=== PATIENT | male | born 1965 | race Caucasian/White ===

== ENCOUNTER → 2017-05-08 12:04 | Outpatient (POV) | payer MEDICARE, SELFPAY | PROVIDERS: PCP Family Medicine; Visit Provider Internal Medicine | DX: Z00.00 Encounter for general adult medical examination without abnormal findings (principal) ==

== ENCOUNTER → 2018-04-16 09:46 | Outpatient (POV) | payer BC, SELFPAY ==
--- NOTE | 2018-04-16 11:34 | XR_ITS ---
XR chest 2V HISTORY: ITS.REASON: SHORTNESS OF BREATH ORDERING PHYSICIAN: Seymour Castillo MD PATIENT AGE: 53 years FINDINGS: The cardiomediastinal silhouette and pulmonary are within normal limits. There are mild atelectatic changes in the left lung base. The remaining lungs are clear.. No acute bony abnormalities. IMPRESSION: Left basilar atelectatic change
== END ==
PROVIDERS: PCP Family Medicine; Referring Provider Nurse Practitioner Family; Visit Provider Internal Medicine
DX: R06.02 Shortness of breath (principal)
CPT/HCPCS: 71046

== ENCOUNTER → 2018-05-14 11:39 | Outpatient (POV) | payer BC, SELFPAY | PROVIDERS: Visit Provider Internal Medicine | DX: Z00.00 Encounter for general adult medical examination without abnormal findings (principal) ==

== ENCOUNTER → 2018-07-23 10:07 | Outpatient (POV) | payer BC, SELFPAY | PROVIDERS: Visit Provider Internal Medicine | DX: Z00.00 Encounter for general adult medical examination without abnormal findings (principal) ==

== ENCOUNTER → 2018-10-18 10:55 | Outpatient (CLI) | payer BC, SELFPAY ==
--- NOTE | 2018-10-18 10:59 | CA_ITS ---
PROCEDURE: 2-D M-mode and color Doppler study INDICATIONS FOR THE TEST: Chest pain + COPD Heart Murmur Tobacco Smokingex Palpitations Fatigue Syncope Edema Hypertension+Diabetes Mellitus Rheumatic Fever SOB+NORWOOD+Obesity Hyperlipidemia Family History HD Additional History CAD,GEWRD, ASTHMA,ARRHYTHMIA PATIENT INFORMATION HEIGHT:72 WEIGHT:231 GENDER: Male B/P:128/84 2-D/M-MODE INTERPRETATION: 2-D MEASUREMENTS OBSERVED VALUES IN CMS Right Ventricular Dimension (RVDd) 4.2 Interventricular Septum (Thickness)(IVsd) 0.9 Left Ventricular Internal Dimensions(LVIDd) 5.2 Left Ventricular Posterior Wall (Thickness)(LVPWd) 1.0 Aortic Root 3.0 Aortic Cusp Separation 2.0 Left Atrial Dimensions (LAD) 3.4 2D 1. Left atrium is normal size, left ventricle is normal size, there is no concentric left ventricular hypertrophy, visually estimated ejection fraction 55% with no regional wall motion abnormality. 2. The right atrium and right ventricle are moderately enlarged with normal contractility. 3. The aortic valve is minimally thickened and fibrosed. 4. The mitral and tricuspid valve leaflets are minimally thickened 5. The pulmonic valve is poorly visualized. 6. No significant pericardial effusion noted. DOPPLER INTERROGATION: Doppler interrogation of the aortic, mitral and tricuspid valvular presence of mild mitral and tricuspid regurgitation, trace aortic insufficiency also seen. Tricuspid regurgitant jet velocity is inadequate for calculation of the right ventricular systolic pressure, diastolic parameters are inconclusive. CONCLUSION: 1. Normal left ventricular size, preserved left ventricular systolic function, visually estimated ejection fraction 55% with no regional wall motion abnormality, diastolic parameters are inconclusive. 2. Moderately enlarged normal contractility 3. Trace aortic, mitral and tricuspid. No significant effusion noted.
--- NOTE | 2018-10-18 11:59 | NM_ITS ---
History:c.p. Procedure: Patient received a 0.4 mg of intravenous Lexiscan, resting heart rate 66 bpm, resting blood pressure 135/82, with Lexiscan maximum heart rate achieve was 95 bpm which is less than 85% of the maximum predicted heart rate and blood pressure was 118/65. With Lexiscan patient denied any complaint of chest pain. Electrocardiogram: Resting electrocardiogram showed sinus rhythm, with Lexiscan there is less than 1.5mm ST segment depression noted from the baseline EKG. The EKG portion of the Lexiscan Myoview is nondiagnostic. Cardias Stress and Resting SPECT images: Cardias Stress and Resting SPECT images were obtained using technetium 99m Myoview 32.1 mCi stress and 10.20 mCi at rest. Gated SPECT further analysis of segmental wall motion and calculation of ejection fraction also done. Cardiac stress and resting SPECT show of fixed defect in the wall with reduced contractility on the gated SPECT is likely secondary to nontransmural myocardial scarring, the computer derived ejection fraction is 49% with moderate inferior wall hypokinesis. Right ventricle is normal size and contractility. Conclusion: 1. The EKG portion of the Lexiscan Myoview is nondiagnostic. 2. Nontransmural myocardial scarring involving the inferior wall, computer derived ejection fraction is over 49% with segmental wall motion abnormality described above, right ventricle is normal size and contractility. 3. Abnormal Lexiscan Myoview study.
--- NOTE | 2018-10-18 14:46 | HMH.ITSHM ---
Current Home Medications as stated by this patient Seymour Shine or telecommunications sales representative. []omeprazole cetirizine diltiazem losartan montelukast tamsulosin symbiciort metoprolol
== END ==
PROVIDERS: Visit Provider Nurse Practitioner Family
DX: R06.00 Dyspnea, unspecified (principal); I20.9 Angina pectoris, unspecified; E78.5 Hyperlipidemia, unspecified; I11.9 Hypertensive heart disease without heart failure
CPT/HCPCS: 78452; 93017; 93306; A9502; J2785

== ENCOUNTER → 2018-11-01 08:49 | Outpatient (CLI) | payer SELFPAY ==
--- NOTE | 2018-11-01 09:01 | CT_ITS ---
PROCEDURE: CT HEART W CALCIUM SCORE CLINICAL HISTORY: ap and risk assessment COMPARISON: CXR2V XR chest 2V from 04/16/2018 TECHNIQUE: Axial images obtained with sagittal and coronal reformats. All CT scans at the facility use one or more dose reduction, viz: automated exposure control, ma/kV adjustment per patient size (including targeted exams where dose is matched to indication, i.e. head), or iterative reconstruction technique. FINDINGS: Coronary artery calcium score is 187 indicating moderate plaque burden with high cardiovascular disease risk Scarring is present in the lung bases. Bronchial thickening with subsegmental volume loss and mild bronchiectasis noted in the left lower lobe. IMPRESSION: Moderate plaque burden with high cardiovascular disease risk Left lower lobe volume loss with bronchial thickening and mild bronchiectasis with scattered scarring Dictated by: Edwar Burleson MD 11/01/2018 17:15 Signed by: <Electronically signed by Edwar Burleson MD in [facility]> 11/01/2018 17:15
== END ==
PROVIDERS: Visit Provider Internal Medicine Cardiovascular Disease
DX: E78.5 Hyperlipidemia, unspecified (principal); I11.9 Hypertensive heart disease without heart failure; I20.9 Angina pectoris, unspecified; I25.10 Atherosclerotic heart disease of native coronary artery without angina pectoris; R94.39 Abnormal result of other cardiovascular function study; Z87.891 Personal history of nicotine dependence
CPT/HCPCS: 75571

== ENCOUNTER → 2020-09-22 09:23 | Outpatient (CLI) | payer BC, SELFPAY ==
--- NOTE | 2020-09-22 09:23 | US_ITS ---
PROCEDURE: US GALLBLADDER CLINICAL INDICATION: GERD COMPARISON: No exams were available for comparison FINDINGS: Pancreas: Unremarkable. No obvious pancreatic mass or ductal dilatation Liver: Diffuse increased echogenicity of the liver with poor through transmission of sound consistent with hepatic steatosis. No focal liver lesion demonstrated. There is appropriate direction of blood flow within non dilated portal vein.There is appropriate direction of blood flow within a non dilated portal vein. Right kidney: Unremarkable appearing. No hydronephrosis. Gallbladder: No stones are evident. There is no gallbladder wall thickening. Common duct is normal in diameter. IMPRESSION: Fatty liver otherwise negative Dictated by: Edwar Burleson MD 09/22/2020 10:27 Edwar Burleson MD in [facility] 09/22/2020 10:27
--- NOTE | 2020-09-22 09:46 | CA_ITS ---
APPROVED REPORT EXAM: Comprehensive 2D, Doppler, and color-flow Echocardiogram Laundry Supervisor: Mena Cobos RT(R) Ht: 6 ft 0 in Wt: 224lbs BSA: 2.24 BP: 108/68 mmHg Indications: HTN, ex smoker, hyperlipidemia, SOB, GERD, DD, REX, asthma, CAD 2D Dimensions LVOT 2.38 cm (M/F) 1.5-2.5 LVEF (Franco's) 50.80 % M: 52 - 72 LV Volume 119.10 mL M: 62 - 150 LV Volume Index 53.40 mL/m2 M: 34 - 74 LA Volume 72.30 mL LA Volume Index 32.42 mL/m2 (M/F) 16-34 M-Mode Dimensions RVDd 4.38 cm (0.9-2.6) LA Diam 4.57 cm (1.9-4.0) LVDd 4.78 cm (3.5-5.7) Ao Diam 3.14 cm (2.0-3.7) LVDs 3.76 cm (3.5-5.7) IVSd 1.02 cm (0.6-1.1) PWd 0.97 cm (0.6-1.1) EF (Teich) 43.30% FS 21.30% EDV (Teich) 106.50 mL ESV (Teich) 60.40 mL LV Diastology E Decel Time 150.00 (160-240 msec) E/A Ratio 0.7 MED E' 7.00 (< 7 cm/sec) E'/MED E' Ratio 8.44 (>14) LAT E' 7.00 (<10 cm/sec) E/LAT E' Ratio 8.44 (>14) Mitral Valve MV E Max Layo. 59.00 (40-130 cm/s) MV A Velocity 79.00 (40-130 cm/s) E/A Ratio 0.74 MV Decel. Time 150.00 (160-240 ms) MV PHT 44.00 ms Tricuspid Valve TR P. Velocity 244.00 cm/s RAP Estimate 10.00 mmHg RVSP 33.90 mmHg Left Ventricle Left atrium is mildly enlarged, left ventricle is normal size, mild concentric left ventricular hypertrophy, visually estimated ejection fraction 55% with no regional wall motion abnormality, grade 1 diastolic dysfunction seen without tissue Doppler evidence of raise left atrial pressure. Right Ventricle Right atrium and right ventricle are mildly enlarged with normal contractility. Aortic Valve Aortic valve is minimally thickened and fibrosed, there is no aortic stenosis, there is mild aortic insufficiency. Mitral Valve Mitral valve is grossly normal, there is trace mitral regurgitation. Tricuspid Valve Tricuspid valve grossly normal, there is trace tricuspid regurgitation, tricuspid regurgitation jet velocity is inadequate for calculation of the right ventricular systolic pressure. Pulmonic Valve Pulmonic valve is poorly visualized. Great Vessels Aortic root is normal size. Pericardium No significant pericardial effusion noted. Conclusion 1. Mild biatrial enlargement, normal left ventricular size, mild concentric left ventricular hypertrophy, visually estimated ejection fraction 55% with no regional wall motion abnormality, grade 1 diastolic dysfunction seen without tissue Doppler evidence of raise left atrial pressure. 2. Mildly enlarged right ventricle with normal contractility. 3. Trace mitral and tricuspid regurgitation. 4. No significant pericardial effusion noted. Electronically signed by : Delmar Warren, 09/23/2020 16:04:02
== END ==
PROVIDERS: PCP Family Medicine; Visit Provider Nurse Practitioner Family
DX: R06.02 Shortness of breath (principal); K21.9 Gastro-esophageal reflux disease without esophagitis; I11.9 Hypertensive heart disease without heart failure; E78.2 Mixed hyperlipidemia; J45.20 Mild intermittent asthma, uncomplicated; G47.33 Obstructive sleep apnea (adult) (pediatric)
CPT/HCPCS: 76705; 93306

== ENCOUNTER → 2022-09-04 10:19 | Outpatient (CLI) | payer BC, MEDICARE, SELFPAY ==
[2022-09-04 10:58] LABS: Basophils # 0.1 K/mm3 (0-0.2); Eosinophils # 0.2 K/mm3 (0.0-0.4); Eosinophils % 2.2 % (0.1-12.0); Hematocrit 45.3 % (42.0-52.0); Hemoglobin 15.4 g/dL (14.1-18.0); Lymphocytes # 1.9 K/mm3 (0.7-4.5); Mean Corpuscular Hemoglobin 28.5 pg (27.0-31.2); Mean Corpuscular Volume 83.9 fl (80-94); Mean Platelet Volume 9.1 fl (7.4-10.4); Monocytes # 0.6 K/mm3 (0.1-1.0); Monocytes % 8.3 % (1.7-9.3); Neutrophils # 4.2 K/mm3 (1.8-7.8); Neutrophils % 61.5 % (37.0-80.0); Platelet Count 175 K/mm3 (142-424); Red Cell Distribution Width 14.1 % (11.5-17.5); White Blood Count 6.9 K/mm3 (4.8-10.8)
[2022-09-04 11:18] LABS: Chloride 100 mmol/L (98-107)
[2022-09-04 11:19] LABS: Potassium 4.2 mmoL/L (3.5-5.1); Sodium 140 mmol/L (136-145)
[2022-09-04 11:21] LABS: Blood Urea Nitrogen 15 mg/dl (9-20); Estimated Glomerular Filt Rate 77 ml/min (>60); GFR (African American) 94 ML/MIN (>60)
[2022-09-04 11:22] LABS: Alanine Aminotransferase 62 U/L (12-78); Albumin Level 4.6 g/dl (3.5-5.0); Alkaline Phosphatase 110 U/L (38-126); Anion Gap 16.2 mEq/L (5-15); Aspartate Amino Transferase 43 U/L (17-59); Bilirubin,Indirect 0.5 mg/dL (0.0-0.9); Bilirubin,Total 0.5 mg/dl (0.2-1.3); Bilirubin,Unconjugated 0.5 mg/dL (0.0-1.1); Calcium 9.3 mg/dl (8.4-10.2); Carbon Dioxide 28 mmol/L (22.0-30.0); Cholesterol 160 mg/dl (140-200); Glucose 155 mg/dl (74-100); Total Protein,Serum 7.3 g/dl (6.3-8.2); Triglycerides 265 mg/dl (30-150); VLDL Cholesterol 53 mg/dL (0-40)
[2022-09-04 11:23] LABS: Chol/HDL Ratio 4.4 (1-3.5); HDL Cholesterol 36 mg/dl (40-60)
[2022-09-04 11:33] LABS: Direct LDL Cholesterol 79.75 mg/dL (100-129)
[2022-09-04 11:40] LABS: Free T4 (Free Thyroxine) 0.95 ng/dl (0.78-2.19)
[2022-09-04 11:55] LABS: Thyroid Stimulating Hormone 0.16 uIU/mL (0.465-4.68)
== END ==
PROVIDERS: PCP Family Medicine; Visit Provider Internal Medicine
DX: R06.02 Shortness of breath (principal); R06.00 Dyspnea, unspecified; I11.9 Hypertensive heart disease without heart failure; E78.2 Mixed hyperlipidemia; I63.9 Cerebral infarction, unspecified; E11.9 Type 2 diabetes mellitus without complications; K21.9 Gastro-esophageal reflux disease without esophagitis; R94.30 Abnormal result of cardiovascular function study, unspecified; G47.33 Obstructive sleep apnea (adult) (pediatric); Z79.84 Long term (current) use of oral hypoglycemic drugs
CPT/HCPCS: 36415; 80048; 80061; 80076; 84439; 84443; 85025

== ENCOUNTER → 2022-12-06 11:47 | Outpatient (CLI) | payer BC, MEDICARE, SELFPAY | PROVIDERS: PCP Family Medicine; Visit Provider Physician Assistant | DX: I11.9 Hypertensive heart disease without heart failure (principal); R00.2 Palpitations; R06.00 Dyspnea, unspecified; E78.5 Hyperlipidemia, unspecified; G47.33 Obstructive sleep apnea (adult) (pediatric); Z87.891 Personal history of nicotine dependence | CPT/HCPCS: 93270 ==

== ENCOUNTER → 2022-12-27 15:17 | Outpatient (CLI) | payer BC, MEDICARE, SELFPAY ==
--- NOTE | 2022-12-27 15:18 | CA_ITS ---
APPROVED REPORT EXAM: Comprehensive 2D, Doppler, and color-flow Echocardiogram Bryologist: Terra Edwards, JERRICA, RVS Ht: 6 ft 0 in Wt: 227lbs BSA: 2.25 BP: 142/73 mmHg Indications: CAD, REX, HTN,HLD,CP,Ex-smoker, Fatty liver, SOA, Asthma 2D Dimensions Aortic Root 3.10 cm M: 3.1 - 3.7 LA Volume 77.50 mL Left Atrium 4.30 cm M: 3.0 - 4.0 LA Volume Index 34.44 mL/m2 (M/F) 16-34 LVOT 2.13 cm (M/F) 1.5-2.5 M-Mode Dimensions RVDd 4.65 cm (0.9-2.6) LA Diam 4.62 cm (1.9-4.0) LVDd 4.89 cm (3.5-5.7) Ao Diam 3.47 cm (2.0-3.7) IVSd 1.07 cm (0.6-1.1) PWd 0.95 cm (0.6-1.1) EPSs 0.52 cm EDV (Teich) 112.30 mL TAPSE 1.97 (<1.7) LV Diastology E Decel Time 163.00 (160-240 msec) E/A Ratio 1.15 MED E' 6.50 (< 7 cm/sec) MED A' 9.40 cm/s E'/MED E' Ratio 9.95 (>14) LAT E' 8.80 (<10 cm/sec) LAT A' 13.10 cm/s E/LAT E' Ratio 7.35 (>14) Aortic Valve LVOT Max 112.00 (70-110 cm/s) LVOT VTI 23.59 cm AoV Peak Layo. 119.00 (50-130 cm/s) AI PHT 432.00 ms AO Peak GR. 5.60 mmHg AO Mean GR. 2.90 (<5 mmHg) AO VTI 22.43 (18-25 cm) LUIS (VTI) 3.75 (2.5-4.5 cm2) Mitral Valve MV A Velocity 56.00 (40-130 cm/s) E/A Ratio 1.15 MV Decel. Time 163.00 (160-240 ms) Pulmonary Valve PV Peak Velocity 90.00 (50-150 cm/s) MN End VMAX 192.00 cm/s Tricuspid Valve TR P. Velocity 213.00 cm/s RAP Estimate 10.00 mmHg RVSP 28.20 mmHg Left Ventricle The left ventricle is normal size. The left ventricular systolic function is normal. The left ventricular ejection fraction is within the normal range. There is normal left ventricular wall thickness. There is normal LV segmental wall motion. The left ventricular diastolic function is normal. LVEF is 55%. Right Ventricle The right ventricle is normal size. The right ventricular systolic function is normal. Atria The left atrium size is normal. The right atrium size is normal. The interatrial septum is not well visualized. Aortic Valve The aortic valve is mildly thickened. There is no aortic valvular stenosis. Mild aortic regurgitation. Mitral Valve The mitral valve is normal in structure. No evidence of mitral valve stenosis. Trace mitral regurgitation. Tricuspid Valve The tricuspid valve leaflets are thin and pliable. Mild tricuspid regurgitation. RVSP is 18 mmHg + RA pressure. Pulmonic Valve The pulmonary valve is normal in structure. Mild pulmonic regurgitation. Great Vessels The aortic root is normal in size. The ascending aorta is normal in size. The IVC is not well visualized. Pericardium There is no pericardial effusion. Other Information Study Quality: Fair Conclusion Normal biventricular systolic function. Mild AI, mild TR, mild MN. Electronically signed by : Amanda Nuñez MD 12/30/2022 21:40:29
== END ==
PROVIDERS: PCP Family Medicine; Visit Provider Physician Assistant
DX: R06.00 Dyspnea, unspecified (principal); R00.2 Palpitations; I11.9 Hypertensive heart disease without heart failure; E78.5 Hyperlipidemia, unspecified; G47.33 Obstructive sleep apnea (adult) (pediatric)
CPT/HCPCS: 93306

== ENCOUNTER 2023-07-25 11:13 | Outpatient (CLI) | payer BC, MEDICARE, SELFPAY ==
[2023-07-25 12:10] LABS: Basophils # 0.1 K/mm3 (0-0.2); Basophils % 1.4 % (0.1-2.0); Eosinophils # 0.1 K/mm3 (0.0-0.4); Eosinophils % 1.7 % (0.1-12.0); Hematocrit 46.1 % (42.0-52.0); Hemoglobin 15.3 g/dL (14.1-18.0); Lymphocytes # 2.1 K/mm3 (0.7-4.5); Lymphocytes % 28.9 % (10-50); Mean Corpuscular HGB Conc 33.1 g/dL (31.8-35.4); Mean Corpuscular Hemoglobin 28.9 pg (27.0-31.2); Mean Corpuscular Volume 87.4 fl (80-94); Monocytes # 0.4 K/mm3 (0.1-1.0); Monocytes % 5.6 % (1.7-9.3); Neutrophils # 4.4 K/mm3 (1.8-7.8); Neutrophils % 62.3 % (37.0-80.0); Platelet Count 203 K/mm3 (142-424); Red Blood Count 5.28 M/mm3 (4.60-6.20); Red Cell Distribution Width 14.2 % (11.5-17.5); White Blood Count 7.1 K/mm3 (4.8-10.8)
[2023-07-25 12:45] LABS: Alanine Aminotransferase 64 U/L (12-78); Albumin Level 4.7 g/dl (3.5-5.0); Alkaline Phosphatase 114 U/L (38-126); Anion Gap 16.3 mEq/L (5-15); Aspartate Amino Transferase 48 U/L (17-59); Bilirubin,Direct 0.2 mg/dl (0.0-0.4); Bilirubin,Indirect 0.4 mg/dL (0.0-0.9); Bilirubin,Total 0.6 mg/dl (0.2-1.3); Bilirubin,Unconjugated 0.4 mg/dL (0.0-1.1); Blood Urea Nitrogen 16 mg/dl (9-20); Calcium 9.7 mg/dl (8.4-10.2); Carbon Dioxide 27 mmol/L (22.0-30.0); Chloride 101 mmol/L (98-107); Chol/HDL Ratio 4.4 (1-3.5); Cholesterol 163 mg/dl (140-200); Estimated Glomerular Filt Rate 87 ml/min (>60); GFR (African American) 105 ML/MIN (>60); Glucose 207 mg/dl (74-100); HDL Cholesterol 37 mg/dl (40-60); Magnesium 1.8 mg/dl (1.6-2.3); Potassium 4.3 mmoL/L (3.5-5.1); Sodium 140 mmol/L (136-145); Total Protein,Serum 7.4 g/dl (6.3-8.2)
[2023-07-25 12:56] LABS: Direct LDL Cholesterol 74.46 mg/dL (100-129)
[2023-07-25 13:03] LABS: Free T4 (Free Thyroxine) 0.88 ng/dl (0.78-2.19)
[2023-07-25 13:04] LABS: Triglycerides 458 mg/dl (30-150)
[2023-07-25 13:16] LABS: Thyroid Stimulating Hormone 0.32 uIU/mL (0.465-4.68)
[2023-07-26 10:24] LABS: Hemoglobin A1C 7.4 % (4.0-6.0)
== END 2023-07-25 23:59 | disposition home or self-care (01) ==
LOC: LAB 11:18
PROVIDERS: PCP Family Medicine; Visit Provider Physician Assistant
DX: R94.30 Abnormal result of cardiovascular function study, unspecified; K21.9 Gastro-esophageal reflux disease without esophagitis; R00.2 Palpitations; R06.02 Shortness of breath; G47.33 Obstructive sleep apnea (adult) (pediatric); E78.2 Mixed hyperlipidemia; I11.9 Hypertensive heart disease without heart failure; E78.1 Pure hyperglyceridemia; R73.9 Hyperglycemia, unspecified; Z79.899 Other long term (current) drug therapy
CPT/HCPCS: 36415; 80048; 80061; 80076; 83036; 83735; 84439; 84443; 85025

== ENCOUNTER 2024-07-21 11:38 | Outpatient (CLI) | payer BC, SELFPAY ==
[2024-07-21 12:59] LABS: Basophils # 0.1 K/mm3 (0-0.2); Basophils % 1.1 % (0.1-2.0); Eosinophils # 0.1 Kmm3 (0.0-0.4); Eosinophils % 0.9 % (0.1-12.0); Hematocrit 43.6 % (42.0-52.0); Hemoglobin 14.9 g/dL (14.1-18.0); Immature Granulocytes # 0.02 10^3uL; Immature Granulocytes % 0.3 %; Lymphocytes # 1.7 K/mm3 (0.7-4.5); Lymphocytes % 22.2 % (10-50); Mean Corpuscular HGB Conc 34.2 g/dL (31.8-35.4); Mean Corpuscular Hemoglobin 28.8 pg (27.0-31.2); Mean Corpuscular Volume 84.3 fl (80-94); Mean Platelet Volume 10.6 fl (7.4-10.4); Monocytes # 0.6 K/mm3 (0.1-1.0); Monocytes % 7.6 % (1.7-9.3); Neutrophils # 5.2 K/mm3 (1.8-7.8); Neutrophils % 67.9 % (37.0-80.0); Nucleated Red Blood Cells # 0 10^3/uL; Nucleated Red Blood Cells % 0 %; Platelet Count 214 K/mm3 (142-424); Red Blood Count 5.17 M/mm3 (4.60-6.20); Red Cell Distribution Width 13.3 % (11.5-17.5); Red Cell Distribution Width-SD 40.8 fL; White Blood Count 7.6 K/mm3 (4.8-10.8)
[2024-07-21 13:52] LABS: Albumin Level 4.6 g/dl (3.5-5.0); Chloride 103 mmol/L (98-107); Sodium 137 mmol/L (136-145)
[2024-07-21 13:55] LABS: Alanine Aminotransferase 71 U/L (12-78); Alkaline Phosphatase 139 U/L (38-126); Aspartate Amino Transferase 51 U/L (17-59); Bilirubin,Direct 0.2 mg/dl (0.0-0.4); Bilirubin,Indirect 0.3 mg/dL (0.0-0.9); Bilirubin,Total 0.5 mg/dl (0.2-1.3); Bilirubin,Unconjugated 0.3 mg/dL (0.0-1.1); Blood Urea Nitrogen 18 mg/dl (9-20); Carbon Dioxide 25 mmol/L (22.0-30.0); Cholesterol 178 mg/dl (140-200); Estimated Glomerular Filt Rate 77 ml/min (>60); GFR (African American) 93 ML/MIN (>60); Total Protein,Serum 7.1 g/dl (6.3-8.2); Triglycerides 386 mg/dl (30-150); VLDL Cholesterol 77 mg/dL (0-40)
[2024-07-21 13:56] LABS: Calcium 9.3 mg/dl (8.4-10.2); Chol/HDL Ratio 5.2 (1-3.5); Glucose 199 mg/dl (74-100); HDL Cholesterol 34 mg/dl (40-60)
[2024-07-21 14:05] LABS: NT Pro Brain Natriuretic Pep. < 20.0 pg/mL (0-125)
[2024-07-21 14:07] LABS: Direct LDL Cholesterol 92.37 mg/dL (100-129)
[2024-07-21 14:13] LABS: Triiodothryronine (T3) Uptake 33 % (23.5-40.5)
[2024-07-21 14:14] LABS: Free Thyroxine Index 2.9 ug/dL (5.93-13.13); T4 (Thyroxine) 8.9 ug/dl (5.53-11.0)
[2024-07-21 14:27] LABS: Thyroid Stimulating Hormone 0.49 uIU/mL (0.465-4.68); Thyroid Stimulating Hormone 0.51 uIU/mL (0.465-4.68)
[2024-07-21 16:31] LABS: Hemoglobin A1C 7.2 % (4.0-6.0)
== END 2024-07-21 23:59 | disposition home or self-care (01) ==
LOC: LAB 11:39
PROVIDERS: PCP Family Medicine; Visit Provider Physician Assistant
DX: I11.9 Hypertensive heart disease without heart failure (principal); I25.118 Atherosclerotic heart disease of native coronary artery with other forms of angina pectoris; R79.89 Other specified abnormal findings of blood chemistry; E78.1 Pure hyperglyceridemia; E78.5 Hyperlipidemia, unspecified; R53.83 Other fatigue; Z87.891 Personal history of nicotine dependence
CPT/HCPCS: 80048; 80061; 80076; 83036; 83880; 84436; 84439; 84443; 84479; 85025